=== PATIENT | female | born 1995 | race Caucasian/White ===

== ENCOUNTER 2016-07-26 10:35 | Emergency (ER) | payer BC ==
[~2016-07-26] VITALS: Ht 175.3 cm; Wt 66.8 kg
[2016-07-26 10:44] VITALS: TEMP 36.9; Ht 175.3 cm; Wt 66.8 kg
[2016-07-26] MEDS ORDERED: SODIUM CHLORIDE 0.9% 1000ML 1,000 ML IV STA ×2 (11:02→11:57)
[2016-07-26 11:09] VITALS: O2SAT 96
--- NOTE | 2016-07-26 11:17 | EMERGENCY ROOM VISIT NOTE ---
History First contact with patient: 10:51 Chief Complaint: HYPERGLYCEMIA Stated Complaint: KETONES TYPE 1 DIABETIC History of Present Illness The patient is a 21 year old female who presents to the Emergency Room via private vehicle with complaints of "ketones, type I diabetic". The patient states that she has a history of type 1 diabetes of which she has an insulin pump, and takes basal as well as bolus insulin doses. She states she is to be well-controlled with her blood sugar readings, which are typically between 70 and 150. She states that around midnight of this past evening she began to feel nauseous therefore checked her ketones with her meter, and it was found to be 2.6. She then states she called [facility] whom she follows with an states they were not helpful, became concerned and rechecked her ketones of which were found to be 3.5. Review of Systems A complete 10-point Review of Systems was discussed with the patient, with pertinent positives and negatives listed in the History of Present Illness. All remaining Review of Systems questions can be considered negative unless otherwise specified. Past Medical/Surgical History Medical Problems: (1) Asthma (2) Contusion of mandibular joint area (3) Facial laceration (4) Mononucleosis (5) Sinus infection Family History Cancer Hypertension Social History Smoking Status: Never Smoker Marital Status: in relationship Housing Status: lives with roommate Occupation Status: student Current/Historical Medications Scheduled Amphetamine-Dextroamphetamine 20MG (Adderall Xr 20MG), 20 MG PO DAILY Ethinyl Estradiol/Norgestrel (Cryselle-28), 1 TAB PO DAILY Insulin Aspart (novoLOG INSULIN PUMP ), 1 EA N/A UD Scheduled PRN Amphetamine-Dextroamphetamine 20MG (Adderall 20MG), 20 MG PO DAILY PRN for ATTENTION DEFICIT Allergies Coded Allergies: No Known Allergies (Unverified , 07/26/16) Physical Exam Vital Signs Date Time Temp Pulse Resp B/P Pulse Ox O2 Delivery O2 Flow Rate FiO2 07/26/16 15:10 90 20 130/81 99 Room Air 07/26/16 14:43 84 22 110/70 99 Room Air 07/26/16 12:45 94 20 133/83 100 Room Air 07/26/16 11:53 97 07/26/16 11:09 96 Room Air 07/26/16 10:44 36.9 68 20 112/81 95 Room Air Physical Exam VITAL SIGNS - Vital signs and nursing notes were reviewed. Afebrile, normotensive, non-tachycardic and saturating well on room air at 95%. GENERAL -21-year-old female appearing her stated age who is in no acute distress. Communicates well with provider and answers questions appropriately. SKIN - Without rashes. HEAD - NC/AT. EYES - PERRL with EOMI bilaterally. Sclera anicteric. Palpebral conjunctiva pink and moist with no injection noted. EARS - No deformities of external structures noted on gross examination bilaterally. NOSE - Midline and without cyanosis. No epistaxis or purulent drainage noted. Septum midline without deviation or septal hematoma noted. MOUTH/OROPHARYNX - Without perioral cyanosis. Buccal mucosa pink and moist and without leukoplakia. Tongue midline with equal elevation of palate bilaterally. No tonsillar hypertrophy, erythema, or exudates noted. Fair dentition noted. NECK - Neck with FROM. Supple to palpation. No lymphadenopathy noted. No nuchal rigidity. LUNGS - Chest wall symmetric without accessory muscle use, intercostals retractions, or central cyanosis. Normal vesicular breath sounds CTA B/L. No wheezes, rales, or rhonchi appreciated. CARDIAC - RRR with S1/S2. No murmur, rubs, or gallops appreciated. ABDOMEN - Abdominal contour without pulsations or visible masses. BS normoactive all four quadrants. Tenderness to palpation in the left lower and left upper quadrants. No palpable masses, hepatosplenomegaly, or ascites noted. EXTREMITIES - No clubbing or peripheral cyanosis. No pretibial edema present. + 5/5 strength noted in UE/LE bilaterally. NEUROLOGIC - Cranial nerves II through XII grossly intact. Sensory intact to light touch throughout. Patellar reflexes +2/4. PSYCH - Pt is very pleasant and interacts well with examiner. Medical Decision & Procedures Laboratory Results 07/26/16 11:00 Red Blood Count 4.98, Mean Corpuscular Volume 92.6, Mean Corpuscular Hemoglobin 33.1, Mean Corpuscular Hemoglobin Concent 35.8, Mean Platelet Volume 10.2, Neutrophils (%) (Auto) 80.3, Lymphocytes (%) (Auto) 14.9, Monocytes (%) (Auto) 3.6, Eosinophils (%) (Auto) 0.6, Basophils (%) (Auto) 0.3, Neutrophils # (Auto) 9.93, Lymphocytes # (Auto) 1.84, Monocytes # (Auto) 0.45, Eosinophils # (Auto) 0.07, Basophils # (Auto) 0.04 07/26/16 11:00 Test 07/26/16 11:00 07/26/16 11:10 07/26/16 11:25 07/26/16 13:10 White Blood Count 12.37 K/uL (4.8-10.8) Red Blood Count 4.98 M/uL (4.2-5.4) Hemoglobin 16.5 g/dL (12.0-16.0) Hematocrit 46.1 % (37-47) Mean Corpuscular Volume 92.6 fL (80-100) Mean Corpuscular Hemoglobin 33.1 pg (25-34) Mean Corpuscular Hemoglobin Concent 35.8 g/dl (32-36) Platelet Count 337 K/uL (130-400) Mean Platelet Volume 10.2 fL (7.4-10.4) Neutrophils (%) (Auto) 80.3 % Lymphocytes (%) (Auto) 14.9 % Monocytes (%) (Auto) 3.6 % Eosinophils (%) (Auto) 0.6 % Basophils (%) (Auto) 0.3 % Neutrophils # (Auto) 9.93 K/uL (1.4-6.5) Lymphocytes # (Auto) 1.84 K/uL (1.2-3.4) Monocytes # (Auto) 0.45 K/uL (0.11-0.59) Eosinophils # (Auto) 0.07 K/uL (0-0.5) Basophils # (Auto) 0.04 K/uL (0-0.2) RDW Standard Deviation 41.0 fL (36.4-46.3) RDW Coefficient of Variation 12.1 % (11.5-14.5) Immature Granulocyte % (Auto) 0.3 % Immature Granulocyte # (Auto) 0.04 K/uL (0.00-0.02) Anion Gap 15.0 mmol/L (3-11) Est Creatinine Clear Calc Drug Dose 94.0 ml/min Estimated GFR () 94.4 Estimated GFR (Non- 81.5 BUN/Creatinine Ratio 12.8 (10-20) Calcium Level 9.3 mg/dl (8.5-10.1) Total Bilirubin 1.7 mg/dl (0.2-1) Aspartate Amino Transf (AST/SGOT) 20 U/L (15-37) Alanine Aminotransferase (ALT/SGPT) 26 U/L (12-78) Alkaline Phosphatase 72 U/L (45-117) Total Protein 7.7 gm/dl (6.4-8.2) Albumin 3.7 gm/dl (3.4-5.0) Globulin 4.0 gm/dl (2.5-4.0) Albumin/Globulin Ratio 0.9 (0.9-2) Amylase Level 28 U/L (25-115) Lipase 100 U/L (73-393) Beta-Hydroxybutyric Acid 34.89 mg/dL (0.2-2.81) Urine Color YELLOW Urine Appearance CLEAR (CLEAR) Urine pH 5.5 (4.5-7.5) Urine Specific [place] 1.041 (1.000-1.030) Urine Protein NEG (NEG) Urine Glucose (UA) 3+ (NEG) Urine Ketones 4+ (NEG) Urine Occult Blood NEG (NEG) Urine Nitrite NEG (NEG) Urine Bilirubin NEG (NEG) Urine Urobilinogen NEG (NEG) Urine Leukocyte Esterase NEG (NEG) Urine Test NEG (NEG) Influenza Type A Antigen Neg for Influ A (NEG) Influenza Type B Antigen Neg for Influ B (NEG) Venous Blood pH 7.39 (7.36-7.41) Venous Blood Partial Pressure CO2 43 mmHg (38.0-50.0) Venous Blood Partial Pressure O2 25 mmHg Venous Blood HCO3 26 mmol/L Venous Blood Oxygen Saturation < 60.0 % Venous Blood Base Excess 0.4 mmol/L Test 07/26/16 13:55 Bedside Glucose 222 mg/dl (70-90) Medications Administered Medications (Trade) Dose Ordered Sig/Dante Route Start Time Stop Time Status Last Admin Dose Admin Sodium Chloride 1,000 ml @ 999 mls/hr Q1H1M STAT IV 07/26/16 11:02 07/26/16 12:02 DC 07/26/16 11:09 999 MLS/HR Sodium Chloride (Nss 1000ml) 1,000 ml @ 200 mls/hr Q5H STAT IV 07/26/16 11:57 07/26/16 15:49 DC 07/26/16 12:09 200 MLS/HR Medical Decision Patient was seen and evaluated as above. After obtaining a thorough history and physical examination the patient appears to be experiencing hyperglycemia. I do not suspect DKA at this time. IV access was initiated and the above workup was performed. Patient was bolused with 1 L of normal saline. At this time I do not believe that additional insulin will be beneficial. CBC revealed slight leukocytosis at 12.37. Hemoglobin elevated at 16.5. CMP revealed low sodium at 134, elevated anion gap of 15, [id number] glucose at 354 and beta hydroxybutyric acid elevated at 34. Total bilirubin was elevated at 1.7. Urine reveals 4+ ketones. Urine test negative. Negative for fluids. Patient's [id number] glucose was repeated and found to be 278 after the bolus. She was then given 1 more liter at 200 miles per hour. She was rechecked and found to be 222. She initially presented with abdominal pain on the left side, and although the total bilirubin is elevated I do not suspect any emergent underlying cause. After the fluids the patient's abdominal pain subsided. She then stated she was feeling much better. She replaced her insulin pump in a different location and she believes that the site that she had a that was not working. This was then changed to a different site she was reevaluated and noted that her pump was working appropriately then and her sugars were continuing to drop to a more appropriate level. The case was discussed with my attending, and I do believe the patient can be followed in the outpatient setting. The patient was educated upon today's findings, and stated she would like to go home at 3:05 PM. I do believe this is appropriate. She was educated upon worrisome symptoms in which to return, had questions answered prior to discharge, was educated upon the need for follow-up and was discharged home in good condition. In the evaluation and treatment this patient the following differential diagnoses were entertained: Cholecystitis, cholelithiasis, DKA, hyperglycemic event, malfunctioning insulin pump, , among others. Impression Primary Impression: Hyperglycemia Additional Impression: Urine ketones Departure Information Dispostion Home / Self-Care Condition GOOD Referrals No Doctor, Assigned (PCP) Patient Instructions My [facility] Additional Instructions You were seen in the emergency Department for hyperglycemia. Through fluids, and close monitoring your blood sugar has returned closer to your average. You may continue using the pump as we discussed. Please follow-up with [facility] for recheck in the next 1-2 days. Please return sooner if your blood sugars would continue to rise or if you develop ketones in the blood as we discussed. Please return for any nausea, vomiting, abdominal pain or new/concerning symptoms. Problem Qualifiers
[2016-07-26 11:25] LABS: BASO % 0.3 %; BASO ABS # 0.04 K/uL (0-0.2); COMPLETE YES; EOS % 0.6 %; HEMATOCRIT 46.1 % (37-47); IG% 0.3 %; LYMPH % 14.9 %; LYMPH ABS # 1.84 K/uL (1.2-3.4); MEAN CELL VOLUME 92.6 fL (80-100); MEAN CORPUSCULAR HEMOGLOBIN 33.1 pg (25-34); MEAN CORPUSCULAR HGB CONC 35.8 g/dl (32-36); MEAN PLATELET VOLUME 10.2 fL (7.4-10.4); MONO % 3.6 %; NEUT % 80.3 %; PLATELET COUNT 337 K/uL (130-400); RED BLOOD COUNT 4.98 M/uL (4.2-5.4); WHITE BLOOD COUNT 12.37 K/uL (4.8-10.8)
[2016-07-26 11:41] LABS: URINE APPEARANCE CLEAR (CLEAR); URINE BILIRUBIN NEG (NEG); URINE COLOR YELLOW; URINE NITRITE NEG (NEG); URINE PH 5.5 (4.5-7.5); URINE SPECIFIC GRAVITY 1.041 (1.000-1.030); UROBILINOGEN NEG (NEG); ZZUR CULT IF INDIC CLEAN CATCH NO
[2016-07-26 11:46] LABS: ALB/GLOB RATIO 0.9 (0.9-2); BETA-HYDROXYBUTYRATE 34.89 mg/dL (0.2-2.81); BUN/CREATININE RATIO 12.8 (10-20); CALCIUM 9.3 mg/dl (8.5-10.1); CREATININE 0.99 mg/dl (0.60-1.20); POTASSIUM 4.4 mmol/L (3.5-5.1)
[2016-07-26 11:47] LABS: MANUAL MICROSCOPIC REQUIRED? NO; REVIEW REQ? NO
[2016-07-26] MEDS ORDERED: NovoLIN-R INSULIN PER UNIT CHARGE SC STA (11:57)
[2016-07-26 13:20] LABS: VEN BLD GAS O2 SATURATION < 60.0 %; VEN BLOOD GAS BASE EXCESS 0.4 mmol/L; VENOUS BLOOD GAS PCO2 43 mmHg (38.0-50.0); VENOUS BLOOD GAS PO2 25 mmHg
[2016-07-26 15:10] VITALS: BP 130/81; PULSE 90; O2SAT 99
[2016-08-25] MEDS ORDERED: INSPMPNVLG (16:39)
[2016-08-25] MEDS ORDERED: CRY28 PO (16:39)
== END 2016-07-26 15:39 | disposition home or self-care (01) ==
LOC: C.EDB 10:37 → C.EDC 15:39
DX: E10.65 Type 1 diabetes mellitus with hyperglycemia (principal); J45.909 Unspecified asthma, uncomplicated; Z79.899 Other long term (current) drug therapy; Z82.49 Family history of ischemic heart disease and other diseases of the circulatory system; Z96.41 Presence of insulin pump (external) (internal); R82.4 Acetonuria

== ENCOUNTER 2016-08-25 17:06 | Emergency (ER) | payer BC ==
[~2016-08-25] VITALS: Ht 175.3 cm; Wt 67.2 kg
[~2016-08-25 17:06] MED LIST: CRY28 PO; INSPMPNVLG
[2016-08-25 17:09] VITALS: TEMP 36.9; Ht 175.3 cm; Wt 67.2 kg
[2016-08-25 17:48] LABS: BASO % 0.3 %; BASO ABS # 0.03 K/uL (0-0.2); COMPLETE YES; EOS % 0.3 %; IG% 0.2 %; LYMPH % 22.2 %; LYMPH ABS # 1.93 K/uL (1.2-3.4); MEAN CORPUSCULAR HEMOGLOBIN 33.4 pg (25-34); MEAN CORPUSCULAR HGB CONC 35.5 g/dl (32-36); MEAN PLATELET VOLUME 10.2 fL (7.4-10.4); MONO % 5.5 %; NEUT % 71.5 %; PLATELET COUNT 346 K/uL (130-400); WHITE BLOOD COUNT 8.68 K/uL (4.8-10.8)
[2016-08-25 18:08] LABS: URINE APPEARANCE CLEAR (CLEAR); URINE BILIRUBIN NEG (NEG); URINE COLOR YELLOW; URINE EPITHELIAL CELL AUTO >30 /lpf (0-5); URINE NITRITE NEG (NEG); URINE PH 6.5 (4.5-7.5); URINE SPECIFIC GRAVITY 1.041 (1.000-1.030); UROBILINOGEN NEG (NEG); ZZUR CULT IF INDIC CLEAN CATCH NO
[2016-08-25 18:11] LABS: MANUAL MICROSCOPIC REQUIRED? NO; REVIEW REQ? NO
[2016-08-25 18:32] LABS: ALKALINE PHOSPHATASE 67 U/L (45-117); ALT/SGPT 30 U/L (12-78); AST/SGOT 21 U/L (15-37); BLOOD UREA NITROGEN 11 mg/dl (7-18); BUN/CREATININE RATIO 10.6 (10-20); CALCIUM 9.1 mg/dl (8.5-10.1); CARBON DIOXIDE 24 mmol/L (21-32); CHLORIDE 104 mmol/L (98-107); GLUCOSE 279 mg/dl (70-99); SODIUM 137 mmol/L (136-145)
--- NOTE | 2016-08-25 18:42 | EMERGENCY ROOM VISIT NOTE ---
History Report prepared by Lacy: Hetal Moore Under the Supervision of: Dr. Vinnie Armas D.O. First contact with patient: 17:10 Chief Complaint: NECK PAIN Stated Complaint: SWOLLEN LYMPH NODE,NECK PAIN History of Present Illness The patient is a 21 year old female who presents to the Emergency Room with complaints of constant neck pain and swelling beginning 5 days ago. The patient states that she noticed a lymph node in the left side of her neck and went so [facility] 3 days ago to have it looked at. She reports that they put her on Clindamycin and told her to follow up if she was still in pain in a few days. She complains of nausea, slight changes in appetite, diarrhea beginning 5 days ago, multiple bruises have not come from any injury that she remembers, chills, sweating, and left sided ear pain that radiates from her neck. The patient denies any runny nose, sore throat, cough, changes in vision, chest pain, shortness of breath, vomiting, fevers, and swelling anywhere besides her left neck. She reports that she is a Type I diabetic and has had one previous knee surgery. No swelling in her groin or armpit per patient. Source of History: patient Onset: 5 days ago Position: neck Quality: other (swelling) Timing: constant Associated Symptoms: + chills, + diarrhea, + nausea, No SOB, No chest pain, No cough, No fevers, No sorethroat Note: She complains of slight changes in appetite, multiple bruises have not come from any injury that she remembers, sweating, and left sided ear pain that radiates from her neck. The patient denies any runny nose, changes in vision, and swelling anywhere besides her neck. Review of Systems See HPI for pertinent positives & negatives. A total of 10 systems reviewed and were otherwise negative. Past Medical & Surgical Medical Problems: (1) Asthma (2) Contusion of mandibular joint area (3) Facial laceration (4) Mononucleosis (5) Sinus infection Family History Cancer Hypertension Social History Smoking Status: Never Smoker Marital Status: in relationship Housing Status: lives with roommate Occupation Status: student Current/Historical Medications Scheduled Amphetamine-Dextroamphetamine 20MG (Adderall Xr 20MG), 20 MG PO DAILY Ethinyl Estradiol/Norgestrel (Cryselle-28), 1 TAB PO DAILY Insulin Aspart (novoLOG INSULIN PUMP ), 1 EA N/A UD Scheduled PRN Amphetamine-Dextroamphetamine 20MG (Adderall 20MG), 20 MG PO DAILY PRN for ADD Allergies Coded Allergies: No Known Allergies (Unverified , 07/26/16) Physical Exam Vital Signs Date Time Temp Pulse Resp B/P Pulse Ox O2 Delivery O2 Flow Rate FiO2 08/25/16 20:04 98 16 137/89 98 08/25/16 19:24 97 18 140/94 96 Room Air 08/25/16 17:09 36.9 119 18 124/86 94 Room Air Physical Exam GENERAL: sitting up in bed, alert, well appearing, well nourished, no distress, non-toxic EYE EXAM: normal conjunctiva, PERRL and EOM's intact OROPHARYNX: no exudate, no erythema, lips, buccal mucosa, and tongue normal and mucous membranes are moist EARS: TMs clear bilaterally NECK: Neck tenderness over left anterior cervical chain tracking down to just above the clavicle. No infraclavicular adenopathy, no adenopathy in axilla LUNGS: Clear to auscultation. Normal chest wall mechanics HEART: no murmurs, S1 normal and S2 normal ABDOMEN: abdomen soft, non-tender, normo-active bowel sounds, no masses, no rebound or guarding. BACK: Back is symmetrical on inspection and there is no deformity, no midline tenderness, no CVA tenderness. : No swelling or lymphadenopathy in the groin SKIN: faint bruise on dorsal aspect of the right mid forearm UPPER EXTREMITIES: upper extremities are grossly normal. LOWER EXTREMITIES: No pitting edema. NEURO EXAM: Normal sensorium, cranial nerves II-XII grossly intact, normal speech, no gross weakness of arms, no gross weakness of legs. Medical Decision & Procedures ER Provider Diagnostic Interpretation: Radiology results as stated below per my review and the radiologist's interpretation: LEFT NECK ULTRASONOGRAPHY FINDINGS: There are 2 small adjacent soft tissue nodules within the left neck. These morphologically. Represent lymph nodes. These measure 10 mm and 9 mm in long axis respectively. The technologist reports the patient was tender to palpation at this area. IMPRESSION: At the area of clinical concern, there are 2 nonpathologically enlarged lymph nodes. Electronically signed by: Erasmo Brown M.D. 08/25/2016 6:51 PM Dictated Date/Time: 08/25/2016 6:49 PM Laboratory Results 08/25/16 17:25 Red Blood Count 5.00, Mean Corpuscular Volume 94.0, Mean Corpuscular Hemoglobin 33.4, Mean Corpuscular Hemoglobin Concent 35.5, Mean Platelet Volume 10.2, Neutrophils (%) (Auto) 71.5, Lymphocytes (%) (Auto) 22.2, Monocytes (%) (Auto) 5.5, Eosinophils (%) (Auto) 0.3, Basophils (%) (Auto) 0.3, Neutrophils # (Auto) 6.19, Lymphocytes # (Auto) 1.93, Monocytes # (Auto) 0.48, Eosinophils # (Auto) 0.03, Basophils # (Auto) 0.03 08/25/16 17:25 Test 08/25/16 17:25 08/25/16 17:45 White Blood Count 8.68 K/uL (4.8-10.8) Red Blood Count 5.00 M/uL (4.2-5.4) Hemoglobin 16.7 g/dL (12.0-16.0) Hematocrit 47.0 % (37-47) Mean Corpuscular Volume 94.0 fL (80-100) Mean Corpuscular Hemoglobin 33.4 pg (25-34) Mean Corpuscular Hemoglobin Concent 35.5 g/dl (32-36) Platelet Count 346 K/uL (130-400) Mean Platelet Volume 10.2 fL (7.4-10.4) Neutrophils (%) (Auto) 71.5 % Lymphocytes (%) (Auto) 22.2 % Monocytes (%) (Auto) 5.5 % Eosinophils (%) (Auto) 0.3 % Basophils (%) (Auto) 0.3 % Neutrophils # (Auto) 6.19 K/uL (1.4-6.5) Lymphocytes # (Auto) 1.93 K/uL (1.2-3.4) Monocytes # (Auto) 0.48 K/uL (0.11-0.59) Eosinophils # (Auto) 0.03 K/uL (0-0.5) Basophils # (Auto) 0.03 K/uL (0-0.2) RDW Standard Deviation 42.3 fL (36.4-46.3) RDW Coefficient of Variation 12.3 % (11.5-14.5) Immature Granulocyte % (Auto) 0.2 % Immature Granulocyte # (Auto) 0.02 K/uL (0.00-0.02) Anion Gap 9.0 mmol/L (3-11) Est Creatinine Clear Calc Drug Dose 93.0 ml/min Estimated GFR () 93.3 Estimated GFR (Non- 80.5 BUN/Creatinine Ratio 10.6 (10-20) Calcium Level 9.1 mg/dl (8.5-10.1) Total Bilirubin 1.0 mg/dl (0.2-1) Direct Bilirubin mg/dl (0-0.2) Aspartate Amino Transf (AST/SGOT) 21 U/L (15-37) Alanine Aminotransferase (ALT/SGPT) 30 U/L (12-78) Alkaline Phosphatase 67 U/L (45-117) Total Protein 7.9 gm/dl (6.4-8.2) Albumin 4.1 gm/dl (3.4-5.0) Lipase 104 U/L (73-393) Chemistry Specimen Hemolysis Monoscreen NEG (NEG) Urine Color YELLOW Urine Appearance CLEAR (CLEAR) Urine pH 6.5 (4.5-7.5) Urine Specific [place] 1.041 (1.000-1.030) Urine Protein NEG (NEG) Urine Glucose (UA) 3+ (NEG) Urine Ketones 1+ (NEG) Urine Occult Blood NEG (NEG) Urine Nitrite NEG (NEG) Urine Bilirubin NEG (NEG) Urine Urobilinogen NEG (NEG) Urine Leukocyte Esterase NEG (NEG) Urine WBC (Auto) 1-5 /hpf (0-5) Urine RBC (Auto) 0-4 /hpf (0-4) Urine Hyaline Casts (Auto) 1-5 /lpf (0-5) Urine Epithelial Cells (Auto) >30 /lpf (0-5) Urine Bacteria (Auto) NEG (NEG) Urine Test NEG (NEG) Laboratory results per my review. ED Course ED COURSE: Vital signs were reviewed and showed tachycardia The patients medical record was reviewed The above diagnostic studies were performed and reviewed. ED treatments and interventions as stated above. 1710: The patient was evaluated in room B7. A complete history and physical examination was performed. 1741: I reevaluated the patient. She is resting comfortably. 1956: I reevaluated the patient and updated her on her results. 2005: Upon reevaluation, the patient is hemodynamically stable.I discussed my findings with the patient and she understands and agrees with the treatment plan. Based on the patients age, coexisting illnesses, exam and lab findings the decision to treat as an outpatient was made. The patient remained stable while under my care. The patient appeared well at the time of discharge. Medical Decision Differential diagnoses includes but is not limited to abscess, adenopathy, mono , mumps, cancer, muscle strain. Patient is a 21-year-old female who presents the ER for assessment neck pain. She notes that she noted swelling on the left side of her neck 3 days ago. She was seen at [facility] and placed on antibiotics and discharged. She has no upper respiratory symptoms. No other complaints with the exception of small bruising intermittently. No fevers above 100.4. No other significant past medical history. No swelling of the parotid glands or constitutional symptoms to suggest mumps or mono. Blood work was obtained as she did note easy bruising which was not easily visible. Patient is otherwise well-appearing. No other lymphadenopathy noted. Labs show no anemia, or thrombocytopenia. UA was negative along with urine . Ultrasound shows likely to enlarged lymph nodes in the cervical chain. No other lymphadenopathy. Patient was discharged follow with PCP in the next 5-7 days. Discussed with Pt concerning signs and symptoms to watch out for. Pt was instructed to follow up with their PCP and discussed with the patient their option to return to the ED at anytime for persistent or worsening symptoms. The appropriate anticipatory guidance and out-patient management, including indications for return to the emergency department, were explained at length to the patient and understood. Impression Primary Impression: Lymph node enlargement Scribe Attestation The scribe's documentation has been prepared under my direction and personally reviewed by me in its entirety. I confirm that the note above accurately reflects all work, treatment, procedures, and medical decision making performed by me. Departure Information Dispostion Home / Self-Care Referrals No Doctor, Assigned (PCP) Forms HOME CARE DOCUMENTATION FORM, IMPORTANT VISIT INFORMATION, WORK / SCHOOL INSTRUCTIONS Patient Instructions Lymphadenopathy, My [facility] Additional Instructions Please follow up with your primary care doctor or if you are a student [facility] with in the next 24 hours. Any worsening of your symptoms, please return to the ED immediately. This includes fevers greater than 100.4, diffuse night sweats, any new swelling, or any other concerning signs or symptoms from your standpoint. Please follow up with [facility] in 7 days to have a repeat evaluation.
--- NOTE | 2016-08-25 18:52 | DIAGNOSTIC IMAGING REPORT ---
LEFT NECK ULTRASONOGRAPHY CLINICAL HISTORY: Pain the left neck adenopathy. COMPARISON STUDY: No previous studies for comparison. FINDINGS: There are 2 small adjacent soft tissue nodules within the left neck. These morphologically. Represent lymph nodes. These measure 10 mm and 9 mm in long axis respectively. The technologist reports the patient was tender to palpation at this area. IMPRESSION: At the area of clinical concern, there are 2 nonpathologically enlarged lymph nodes. Electronically signed by: Erasmo Brown M.D. 08/25/2016 6:51 PM Dictated Date/Time: 08/25/2016 6:49 PM
[2016-08-25 20:04] VITALS: BP 137/89; PULSE 98; O2SAT 98
[2016-08-25] MEDS ORDERED: AMPH20TA2 PO (20:25)
[2016-08-25] MEDS ORDERED: AMPH20CA3 PO (20:25)
== END 2016-08-25 20:05 | disposition home or self-care (01) ==
LOC: C.EDB 17:07
DX: R59.0 Localized enlarged lymph nodes (principal); E10.9 Type 1 diabetes mellitus without complications; J45.909 Unspecified asthma, uncomplicated; S50.11XA Contusion of right forearm, initial encounter; X58.XXXA Exposure to other specified factors, initial encounter; Z82.49 Family history of ischemic heart disease and other diseases of the circulatory system; Z79.4 Long term (current) use of insulin; Z79.3 Long term (current) use of hormonal contraceptives